=== PATIENT | male | born 1940 | race Caucasian/White ===

== ENCOUNTER → 2016-08-14 | Day surgery (SDC) | payer OTHER ==
[~2016-08-14] VITALS: Ht 172.7 cm; Wt 97.7 kg
[~2016-08-14] MED LIST: ACETAMINOPHEN 500 MG CPLT PO PRN; ATROPINE SULFATE 1% OPHT SOLN 2 ML BTL ONE; BALANCED SALT SOLN OPHT IRRIG 15 ML BTL ONE; CHLORHEXIDINE GLUCONATE 2 % 1 PACK (2 CLOTHS) TOPICAL PRN; DEXAMETHASONE SOD PHOS 4 MG/ML VIAL ONE; DEXTROSE 50% IN WATER 50 ML SYRINGE IV ONE; DEXTROSE 50% IN WATER 50 ML SYRINGE ONE; DILT60TA33 PO; DO NOT ADM ANY ANTICOAGULANT DRUGS PRN; EPINEPHrine HCL (1:1000) 1 MG/ML VIAL ONE; FAMOTIDINE 20 MG/2 ML VIAL ONE; FENO160T PO; INSULIN HUMAN REGULAR 1,000 UNITS/10 ML VIAL SQ PRN; LACTATED RINGER'S 1000 ML IV PRN; LOSA100T PO; METOPROLOL TARTRATE 25 MG TAB PO PRN; MIDAZOLAM HCL 2 MG/2 ML VIAL ONE; NOVOLOGMXP SQ; ONDANSETRON HCL 4 MG/2 ML VIAL IM PRN; PHENYLEPH/NS 1000 MCG/10 ML SYR IV ONE; POVIDONE IODINE 5% (ANTISEPSIS KIT) 4 APPLICATIONS EACH NARE PRN; PROPOFOL 200 MG/20 ML AMP IV ONE; SODIUM CHLORID 0.9% 500 ML IV PRN; STERILE WATER FOR INJ 20 ML VIAL ONE; TAMS5CAP PO; TOBRAMYCIN 0.3%/DEXAMETHASONE 0.1% OPHT SUSP 5 ML BTL ONE; TOBRAMYCIN/DEXAMETHASONE OPTH OINT 3.5 GM TUBE ONE; TRIAMCINOLONE ACETONIDE/PF 40 MG/ML OPTH VIAL ONE; TROPICAMIDE 1% OPHT SOLN 15 ML BTL ONE; ZOCO80TA PO; ceFAZolin INJ 1,000 MG VIAL ONE; fentaNYL CITRATE 250 MCG/5 ML AMP ONE
[2016-08-14 07:00] VITALS: BP 159/81; PULSE 100; RESP 20; TEMP 98; O2SAT 96
[2016-08-14 08:26] LABS: AUTOMATED NEUTROPHIL # 4.8 TH/MM3 (1.8-7.7); BASOPHIL % 0.7 % (0.0-2.0); EOSINOPHIL # 0.2 TH/MM3 (0-0.4); EOSINOPHIL % 3.6 % (0.0-4.0); HEMATOCRIT 42.1 % (39.0-51.0); HEMO FLAGS DIFF FINAL; MEAN CELL VOLUME 95.1 FL (80.0-100.0); MEAN CORPUSCULAR HEMOGLOBIN 31.4 PG (27.0-34.0); MONO % 7.3 % (0.0-8.0); NEUT % 73.4 % (16.0-70.0); PLATELET COUNT 101 TH/MM3 (150-450); RED BLOOD COUNT 4.42 MIL/MM3 (4.50-5.90); RED CELL DISTRIBUTION WIDTH 14.3 % (11.6-17.2); WHITE BLOOD COUNT 6.5 TH/MM3 (4.0-11.0)
[2016-08-14] MEDS: ATROPINE SULFATE 1% OPHT SOLN 5 ML BTL LEFT EYE SCH ×4 (08:57→09:45)
[2016-08-14] MEDS: TROPICAMIDE 1% OPTH SOLN 2 ML BTL LEFT EYE SCH ×4 (08:57→09:45)
[2016-08-14] MEDS: CYCLOPENTOLATE HCL 1% OPHT SOLN 2 ML BTL LEFT EYE SCH ×4 (08:57→09:45)
[2016-08-14] MEDS: PHENYLEPHRINE HCL 2.5% OPTH SOLN 2 ML BTL LEFT EYE SCH ×4 (08:57→09:45)
[2016-08-14 13:25] VITALS: BP 162/92; PULSE 93; RESP 16; TEMP 97.6; O2SAT 98
--- NOTE | 2016-08-17 05:03 | MP ---
cc: CAMRON KIRKPATRICK M.D. DATE OF SURGERY: 08/14/2016 PREOPERATIVE DIAGNOSIS: Visually significant epiretinal membrane with macular pucker, left eye. POSTOPERATIVE DIAGNOSIS Visually significant epiretinal membrane with macular pucker, left eye. PROCEDURE: Trans pars plana vitrectomy, membranectomy, focal laser and gas fluid exchange, left eye. SURGEON Dr. Camron Kirkpatrick. ANESTHESIA General laryngeal mask anesthesia DESCRIPTION OF PROCEDURE: Mr. Azul is a 76-year-old gentleman with a history of decreased and distorted vision in his left eye. He was found to have an epiretinal membrane with macular pucker. This was confirmed on CT. He wished to proceed electively with a vitrectomy, membrane peel to try and improve visual functioning. The risks and benefits of surgery were discussed with the patient and informed consent was obtained. No guarantee was made as to visual outcome. He was brought to [facility] operating room #1 and placed on the operating table. Appropriate anesthesia monitoring devices were applied and he was placed under general anesthesia using a laryngeal mask. The left eye was identified as the operative site, prepped and draped in the usual sterile fashion. A lid speculum was placed. The microscope was brought around and adjusted. At this time an appropriate time-out was called with the surgical team agreeing to the surgical site and planned procedure. Using the Mario 23-gauge vitrectomy system the eye was entered with the first trocar cannula at about 3 o'clock and verified to be in the posterior chamber, after first displacing the conj. An infusion cannula was affixed to it, turned on. Two additional trocar cannulas were placed at 10 and 2 o'clock. Using the flat contact lens for viewing and the light pipe and vitrectomy cutter were introduced into the eye, and a core vitrectomy was carried out. The membrane was elevated on the OCT so it was approached with both the Carlos membrane scraper and Jamison's pic. It was very tenacious but finally elevated up to the superior temporal arcade where it was removed with the vitrectomy cutter. During the membrane peeling process, a hemorrhage occurred just inferior to the fovea from the Carlos membrane scraper. This was lightly treated with six endo-laser spots in case there was a full thickness break there. The fundus was inspected with the indirect ophthalmoscope and scleral depression and no retinal breaks were found. Therefore, an air fluid exchange was performed and the plugs were placed back in the eye. The trocar cannulas were removed one by one with diathermy to the overlying conjunctival wound. The infusion cannula was removed lastly and that site tamponaded with a cotton swab and the conjunctival wound treated with diathermy, leaving the eye with good pressure and no visible air leaks. Atropine drops were placed on the cornea. A lid speculum was removed and the patient was undraped. TobraDex ointment was placed on the cornea and then the left eye was patched and shielded. The patient had the laryngeal mask removed in the room and was returned to recovery in good condition lying on his right side. When awake and alert he will be asked to begin face-down positioning. MD SHAWN Howard/AUBREY /2:55 PM /4:04 AM
--- NOTE | 2016-08-18 08:16 | EKG ---
Date Performed: 08/14/2016 Time Performed: 07:31:08 PTAGE: 76 years EKG: Sinus rhythm INDETERMINATE AXIS RIGHT BUNDLE BRANCH BLOCK ABNORMAL ECG NO PREVIOUS TRACING DOCTOR: Colby Fox Interpretating Date/Time 08/18/2016 08:14:33
== END | disposition home or self-care (01) ==
LOC: HSDC 06:42
PROVIDERS: ATTEND Ophthalmology
DX: H35.372 Puckering of macula, left eye (principal); I10 Essential (primary) hypertension; E78.5 Hyperlipidemia, unspecified; E10.9 Type 1 diabetes mellitus without complications
CPT/HCPCS: 00145; 67041; 82948; 85025; 93005; J0171; J0690; J1100; J2250; J2370; J3010; J3300

== ENCOUNTER → 2016-10-09 | Day surgery (SDC) | payer OTHER ==
[~2016-10-09] VITALS: Ht 172.7 cm; Wt 97.0 kg
[~2016-10-09] MED LIST changes: +BUPIVACAINE HCL PF 0.75% 10 ML VIAL ONE; -FAMOTIDINE 20 MG/2 ML VIAL ONE; +ONDANSETRON HCL 4 MG/2 ML VIAL IV PUSH ONE; -TROPICAMIDE 1% OPHT SOLN 15 ML BTL ONE; +ePHEDrine/NS 25 MG/5 ML SYR IV ONE; -fentaNYL CITRATE 250 MCG/5 ML AMP ONE; +oxyCODONE/ACETAMINOPHEN 5 MG/325 MG TAB PO PRN
[2016-10-09 07:45] VITALS: BP 138/68; PULSE 87; RESP 20; TEMP 97.8; O2SAT 94
[2016-10-09 07:50] LABS: AUTOMATED NEUTROPHIL # 5.2 TH/MM3 (1.8-7.7); BASOPHIL % 0.7 % (0.0-2.0); EOSINOPHIL # 0.3 TH/MM3 (0-0.4); EOSINOPHIL % 4.1 % (0.0-4.0); HEMATOCRIT 38.5 % (39.0-51.0); HEMO FLAGS DIFF FINAL; LYMPH % 15.8 % (9.0-44.0); LYMPHOCYTE # 1.1 TH/MM3 (1.0-4.8); MEAN CELL VOLUME 93.5 FL (80.0-100.0); MEAN CORPUSCULAR HEMOGLOBIN 31.9 PG (27.0-34.0); MEAN CORPUSCULAR HGB CONC 34.1 % (32.0-36.0); MONO % 6.7 % (0.0-8.0); NEUT % 72.7 % (16.0-70.0); PLATELET COUNT 103 TH/MM3 (150-450); RED BLOOD COUNT 4.12 MIL/MM3 (4.50-5.90); RED CELL DISTRIBUTION WIDTH 13.9 % (11.6-17.2); WHITE BLOOD COUNT 7.1 TH/MM3 (4.0-11.0)
[2016-10-09] MEDS: TROPICAMIDE 1% OPHT SOLN 15 ML BTL LEFT EYE SCH ×4 (08:35→09:30)
[2016-10-09] MEDS: CYCLOPENTOLATE HCL 1% OPHT SOLN 2 ML BTL LEFT EYE SCH ×4 (08:35→09:30)
[2016-10-09] MEDS: ATROPINE SULFATE 1% OPHT SOLN 5 ML BTL LEFT EYE SCH ×4 (08:35→09:30)
[2016-10-09] MEDS: PHENYLEPHRINE HCL 2.5% OPTH SOLN 2 ML BTL LEFT EYE SCH ×4 (08:35→09:30)
[2016-10-09 15:10] VITALS: BP 131/67; PULSE 86; RESP 18; TEMP 97; O2SAT 96
--- NOTE | 2016-10-10 13:20 | MP ---
cc: CAMRON MCCONNELL M.D. 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 PROCEDURE: Trans pars plana vitrectomy with membranectomy, internal drainage of subretinal fluid using Perfluoron liquid laser red endolaser retinopexy gas fluid exchange, scleral buckle procedure, left eye. SURGEON Dr. Camron Mcconnell ANESTHESIA General laryngeal mask anesthesia HISTORY: Mr. Azul is a 76-year-old gentleman who underwent a vitrectomy, membranectomy back in July 2016, he was doing fine until he woke up yesterday morning and had lost three quarters of his visual field in the left eye. He was seen in the office by Dr. Velasquez who diagnosis him with a rhegmatogenous retinal detachment and PVR. Since he was my patient I decided to proceed with detachment repair the following day. The risks and benefits of surgery were discussed with the patient including the possibility of silicone oil, gas fluid exchange with postop face-down positioning and scleral buckle. He wished to proceed and informed consent was obtained. No guarantee was made as to visual outcome. PROCEDURE: He was brought to [facility] operating room one and placed on the operating table. Appropriate anesthesia monitoring devices were applied, and was placed under general anesthesia using laryngeal mask. The left eye was prepped and draped in the usual sterile fashion. A lid speculum was placed. The microscope was brought around and adjusted. At this point an appropriate time-out was called with the surgical team agreeing to the proposed procedure and surgical site. Using the Mario 23-gauge vitrectomy system the trocar cannulas were placed 3-1/2 mm posterior to the limbus after first displacing the conjunctiva. The first one was placed at approximately 3:15 o'clock and verified to be in the posterior chamber. An infusion cannula was affixed to it and it was turned on. Two additional trocar cannulas were placed in similar fashion at 9:45 and 2:15 o'clock and the eye was entered with the Endo eliminator light pipe and vitrectomy cutter using the flat contact lens for higher magnification, the retina was inspected. The retina was detached from approximately 2 o'clock down around to approximately 11 o'clock. There was a clear retinal break at 5:30 o'clock with a rolled edge. There was another break at 6 o'clock slightly more posterior. There was a membrane elevated off just above the inferotemporal arcade. This was grasped with forceps and peeled superiorly and nasally which relaxed most of the of the posterior retina. We switched to wide-angle biome viewing and then a more peripheral vitrectomy was carried out with scleral depression and stripping of anterior vitreous base folds. This was time consuming and tedious. It was done with the posterior pole stabilized with Perfluoron liquid. Once all of the traction had been removed as well as possible the Perfluoron liquid level was raised to flatten the more anterior retina and then endolaser photocoagulation was placed around the inferior 180 degrees of the mid periphery and periphery. This was done using a power of 300 milliwatts and 0.1-second exposure. A total of 804 laser spots were placed. The Perfluoron was then vacuumed out and replaced with air. The air was replaced with a 15% mixture of C3F8 gas, which slowly insufflated through the eye because of the anterior traction. I decided to add a scleral buckle procedure so the trocar cannulas were removed and those sites closed with interrupted 7-0 Vicryl after first doing a peritomy around the limbus and then posterior dissection of the conjunctiva. Isolation of the recti muscles with 4-0 black silk ties, 5-0 polyester sutures were placed in mattress style fashion in between each recti muscle in the area between the equator and the vitreous base and then a 41 band was placed through the mattress sutures and under the recti muscles and secured with a 70 sleeve in the superotemporal quadrant. The buckle was snugged up and then secured with the polyester sutures. The orbit was irrigated with a mixture of 0.75% Marcaine and tobramycin 0.75% Marcaine without epinephrine and tobramycin. A small amount of gas was allowed to escape through the pars plana with a 30 gauge needle to leave the eye with good pressure. The conjunctiva was brought back up in place and closed using interrupted 7-0 Vicryl. The recti muscle ties were removed. Atropine drops were placed on the cornea. Subconjunctival injections of Ancef 125 mg and 0.50 cc and Decadron 2 mg and 0.50 cc were given at separate sites. The lid speculum was removed and the patient had laryngeal mass removed and the patient was undraped. TobraDex ointment was placed on the cornea and the left eye was patched and shielded. The patient had the laryngeal mass removed in the room and was returned to recovery in good condition laying on his right side. When awake and alert he will be asked to begin face-down positioning. MD SHAWN Howard/sanjeev /2:13 PM /1:05 PM
== END | disposition home or self-care (01) ==
LOC: HSDC 06:47
PROVIDERS: ATTEND Ophthalmology
DX: H33.022 Retinal detachment with multiple breaks, left eye (principal); H33.42 Traction detachment of retina, left eye; E11.9 Type 2 diabetes mellitus without complications; I10 Essential (primary) hypertension; Z79.4 Long term (current) use of insulin
CPT/HCPCS: 00145; 67108; 82948; 85025; J0171; J0690; J1100; J2250; J2370; J2405; J3010; J7120; J3300